=== PATIENT | male | born 1960 | race Caucasian/White ===

== ENCOUNTER → 2023-09-12 06:25 | Day surgery (SDC) | payer BC, SELFPAY | LOC: GI 06:25 | PROVIDERS: ATTENDING PHYSICIAN Surgery | DX: Z12.11 Encounter for screening for malignant neoplasm of colon (principal); Q43.8 Other specified congenital malformations of intestine; Z86.010 Personal history of colon polyps | CPT/HCPCS: G0105 ==

== ENCOUNTER → 2023-11-06 08:34 | Outpatient (REF) | payer BC, SELFPAY | LOC: RCS 08:34 | PROVIDERS: ATTENDING PHYSICIAN Nuclear Medicine Nuclear Cardiology; FAMILY PHYSICIAN Physician Assistant Medical | DX: Z86.79 Personal history of other diseases of the circulatory system (principal); R07.2 Precordial pain; R06.02 Shortness of breath; R94.31 Abnormal electrocardiogram [ECG] [EKG] | CPT/HCPCS: 93017; 93350 ==

== ENCOUNTER → 2023-11-12 09:20 | Outpatient (REF) | payer BC, SELFPAY | LOC: HWRCS 09:20 | PROVIDERS: ATTENDING PHYSICIAN Nuclear Medicine Nuclear Cardiology; FAMILY PHYSICIAN Physician Assistant Medical | DX: Z86.79 Personal history of other diseases of the circulatory system (principal); R07.2 Precordial pain; R06.02 Shortness of breath; R94.31 Abnormal electrocardiogram [ECG] [EKG] | CPT/HCPCS: 93306 ==

== ENCOUNTER → 2024-06-09 07:28 | Outpatient (REF) | payer BC, SELFPAY | LOC: RAD 07:28 | PROVIDERS: ATTENDING PHYSICIAN Nuclear Medicine Nuclear Cardiology; FAMILY PHYSICIAN Physician Assistant Medical | DX: Z13.5 Encounter for screening for eye and ear disorders (principal) | CPT/HCPCS: 76770 ==

== ENCOUNTER → 2024-11-21 07:36 | Outpatient (REF) | payer MEDICARE, OTHER, SELFPAY | LOC: RAD 07:36 | PROVIDERS: ATTENDING PHYSICIAN Internal Medicine Critical Care Medicine; FAMILY PHYSICIAN Physician Assistant Medical | DX: R91.1 Solitary pulmonary nodule (principal); J43.2 Centrilobular emphysema; R59.0 Localized enlarged lymph nodes | CPT/HCPCS: 71260; Q9967 ==

== ENCOUNTER 2025-05-26 14:44 | Emergency (ER) | payer MEDICARE, OTHER, SELFPAY ==
[2025-05-26 14:48] VITALS: BP 154/96
--- NOTE | 2025-05-26 15:54 | ED.GENMED ---
History of Present Illness
General
Chief Complaint: Skin Surface Trauma
Time Seen by Provider: 05/26/25 15:54
History of Present Illness
History of Present Illness:
FOCUSED PAST MEDICAL HISTORY
- Smoker, skin cancer, anxiety
REVIEW OF OLD RECORDS
- The patient had colonoscopy 2023
Note:
CHIEF COMPLAINT(S)
Laceration on left hand from shattered glass.
HISTORY OF PRESENT ILLNESS
The patient is a 64-year-old male who presented with a laceration on the dorsal aspect of the left hand between the first and second metacarpals. The injury occurred while the patient was cleaning a chandelier that shattered. The incident happened
swiftly as the patient reached up to clean a smear, resulting in the chandelier breaking, causing the laceration. The patient reported initially seeing something sticking out of the wound, but currently, there is no sensation of foreign object
presence. The laceration measures 2.5 centimeters in a linear fashion.
PHYSICAL EXAM
General: Alert, no acute distress.
Skin: Warm, dry. Laceration on the dorsal aspect of the left hand between the first and second metacarpals, measuring 2.5 cm, linear, with excellent range of motion and no body tenderness. No foreign body.
Musculoskeletal: Normal range of motion, normal strength, particularly in the fingers of the left hand. The patient shows good Range of Motion and can push against resistance well.
Neurological: Alert and oriented to person, place, time, and situation, No focal neurological deficit observed.
PROBLEM LIST
Acute:
1. Laceration on the left hand with no tendon involvement
PLAN
1. Administer numbing medicine before cleaning the wound.
2. Irrigate the wound with saline to remove any debris.
3. Recommend stitches to close the laceration.
4. Opt against x-rays as glass may not be visible; will visually inspect the wound for accuracy.
DIFFERENTIAL DIAGNOSIS
The Differential Diagnosis includes, in no particular order and is not limited to:
1. Superficial laceration
2. Foreign body in the wound
3. Tendon injury (unlikely given current examination)
4. Soft tissue injury
5. Contusion without fracture
6. Infection risk post-laceration
7. Hematoma
8. Subcutaneous emphysema (unlikely)
9. Ecchymosis
10. Nerve injury (unlikely given current examination)
Disposition:
SUMMARY OF ENCOUNTER
A 64-year-old male presented to the emergency department with a 2.5 cm laceration on the dorsal aspect of the left hand. This injury resulted from shattered glass while cleaning a chandelier. The patient reported initially seeing something sticking
out of the wound but currently lacks any sensation of a foreign object. In the emergency department, I irrigated the wound to ensure any potential debris was removed and placed five stitches to close the laceration. Visual inspection showed no
evidence of a foreign body.
PLAN
Recommend keeping the wound clean and dry. Stitches will need to be reviewed and likely removed in about 10 days. Provided instructions on signs of infection to watch for, such as redness, swelling, or increased pain, and to seek medical attention
if these occur.
PROCEDURES
The wound on the left hand was thoroughly irrigated with saline to remove debris, and five stitches were applied to close the laceration.
PATIENT EDUCATION AND COUNSELING
The patient was informed about proper wound care, signs of infection to monitor, and the importance of follow-up care to remove sutures.
FOLLOW-UP INSTRUCTIONS
The patient should schedule a follow-up visit with their primary care provider in approximately 10 days to have the stitches removed and assess wound healing.
MEDICAL DECISION MAKING
-Complexity of Data Reviewed: DDx list includes superficial laceration, foreign body in the wound, tendon injury, soft tissue injury, contusion without fracture, infection risk post-laceration, hematoma, subcutaneous emphysema, ecchymosis, and nerve
injury.
-Risk:
Consideration of Admission/Observation: Escalation of care was considered; however, the patient is deemed safe for outpatient management with close follow-up. The reasoning includes reassuring work-up results, stable vitals, manageable symptoms, and
the patients agreement and reliability for follow-up.
DIAGNOSIS
Laceration of left hand - ICD-10 Code S61.412.
Past History
Past History
ED Past Medical History: Arrthythmia and Psychiatric
ED Past Surgical History: Tonsilectomy
Social History
Tobacco: Smoker
Alcohol: Occasional
Drug: None
Personal:
Living: with family
Employment: Employed
Phy Exam
Physical Exam
Physical Exam:
See HPI
Course
Vital Signs
Initial and Last Documented VS:
Initial Vital Signs
Temp Pulse Resp BP Pulse Ox
36.6 C 70 16 154/96 98
05/26/25 14:48 05/26/25 14:48 05/26/25 14:48 05/26/25 14:48 05/26/25 14:48
Last Documented Vital Signs
Temp Pulse Resp BP Pulse Ox
36.6 C 70 16 154/96 98
05/26/25 14:48 05/26/25 14:48 05/26/25 14:48 05/26/25 14:48 05/26/25 15:55
Procedures
Laceration Closure
Left Dorsal Hand:
Status of Wound: clean
Size of Wound in cm: 2.5
Description of Wound Edges: sharp and flap-well vascularized
Preparation: cleaned with saline and other (Alcohol prep pad)
Anesthesia: 1% Lidocaine with epi
Revision/Debridement: routine- no revision
Wound exploration: explored to base- no FB
Type of Closure: single layer closure
Skin Closure Material: 4-0 prolene
Number of sutures: 5
*Pulse Oximetry
SaO2: 98
Oxygen Mode of Delivery: Room air
Patient hypoxic: no
*Critical Care Note
Total Time (30-74mins, 75-104mins- exclusive of procedures): Not Applicable
ED Attending Note
-
Portions of this chart may have been created with voice recognition software.� Occasional wrong word or��sound alike� substitutions may have occurred due to the inherent limitations of voice recognition software.
Discharge Plan
Departure
Patient Disposition: Home (Routine Discharge)
Date of Disposition: 05/26/25
Time of Disposition: 16:20
Patient with high blood pressure during this ER visit?: Yes
Discharge Problem:
Laceration of hand
Instructions: Laceration Repair With [place] (DC), BLOOD PRESSURE
Prescriptions:
No Action
Amino Acid
1 tsp PO DAILY
Fish Oil 1,000 Mg Softgel
1,000 mg PO DAILY
Multivitamin
1 unit PO DAILY
Prozac
20 mg PO DAILY
meclizine [Antivert] 50 MG tablet
50 mg PO TID PRN (Reason: Dizziness) Qty: 21 0RF
azithromycin 250 MG tablet
250 mg PO DAILY Qty: 6 0RF
Referrals:
Kayla Khan PA-C [Family Provider, Internal Medicine]
Activity Restrictions/Additional Instructions:
I recommend that your stitches be removed by your doctor in approximately 7 to 10 days. Return here if worse or other concerns.
Interventions
Interventions:
*Risk Screen - Suicide Last Done: 05/26/25 14:48
*General Assessment Last Done: 05/26/25 15:46
*Neglect/Abuse Screening Last Done: 05/26/25 14:48
*ED- Fall Risk Assessment Last Done: 05/26/25 15:46
*ED COVID-19 Vaccine History Last Done: 05/26/25 15:46
*ED Influenza Vaccine History Last Done: 05/26/25 15:46
ED-Skin Assessment Last Done: 05/26/25 15:46
Discharge Date and Time
Print Language: CROATIAN
== END 2025-05-26 16:25 | disposition home or self-care (01) ==
LOC: EMR 14:44
PROVIDERS: EMERGENCY PHYSICIAN Emergency Medicine; FAMILY PHYSICIAN Physician Assistant Medical
DX: S61.412A Laceration without foreign body of left hand, initial encounter (principal); W25.XXXA Contact with sharp glass, initial encounter; Y93.E9 Activity, other interior property and clothing maintenance; F41.9 Anxiety disorder, unspecified; F17.200 Nicotine dependence, unspecified, uncomplicated; Z85.828 Personal history of other malignant neoplasm of skin
CPT/HCPCS: 99282; 12001